=== PATIENT | female | born 1965 | race Caucasian/White ===

== ENCOUNTER 2019-03-11 06:02 | Observation (INO) ==
[~2019-03-11 06:02] MED LIST: CefOXitin Inj 2 GM in Sodium Chloride 0.9% 100 ML IV ONE; LIDOCAINE W/ SODIUM BICARB 0.5 ML SYR SUBD PRN; Nasal Sanitizer POPSWAB ampule 3 AMP (Nozin) PREOP DOSE ENOS SCH
[2019-03-11] MEDS ORDERED: Lactated Ringers 2,000 ML PRIMARY IV ONE (06:16)
[2019-03-11] MEDS ORDERED: LIDOCAINE W/ SODIUM BICARB 0.5 ML SYR ONE (06:16)
[2019-03-11] MEDS ORDERED: Sodium Chloride 0.9% 100 ML IV ONE (06:18)
[2019-03-11] MEDS: Lactated Ringers 1,000 ML PRIMARY IV SCH ×2 (06:34→10:10)
[2019-03-11 06:35] LABS: BILIRUBIN,URINE NEGATIVE (NEG); CLARITY,URINE CLEAR (CLEAR); COLOR,URINE YELLOW (Y); GLUCOSE, URINE (UA) NEGATIVE (NEG); OCCULT BLOOD,URINE LARGE (NEG); PROTEIN,URINE NEGATIVE (NEG); UROBILINOGEN,URINE 0.2 EU/dL (0.2)
[2019-03-11 06:39] LABS: BACTERIA,URINE RARE; SQUAMOUS EPITHELIAL CELL,UR FEW; URINE SAMPLE TYPE CLEAN CATCH URINE
[2019-03-11 07:10] LABS: Hematocrit [HCT] 36.1 % (37.0-47.0); Hemoglobin [HGB] 11.6 g/dL (12.0-16.0)
[2019-03-11] MEDS ORDERED: LIDOCAINE HCL 2 % 10 ML JELLY URO-JECT TOPICAL ONE (07:23)
[2019-03-11] MEDS ORDERED: PROPOFOL 10 MG/1 ML (200 MG/20 ML) VIAL IV ONE (07:33)
[2019-03-11] MEDS ORDERED: fentaNYL Inj 250 MCG/5 ML VIAL ONE (07:33)
[2019-03-11] MEDS ORDERED: DEXAMETHASONE PF 10 MG/1 ML VIAL ONE (07:34)
[2019-03-11] MEDS ORDERED: SUCCINYLCHOLINE CHLORIDE 20 MG/1 ML - 10 ML ONE (07:35)
[2019-03-11] MEDS ORDERED: ROCURONIUM 10 MG/1 ML - 5 ML VIAL IVP ONE (07:35)
[2019-03-11] MEDS ORDERED: BUPIVACAINE 0.5% W/ EPI - 10 ML VIAL ONE (07:43)
[2019-03-11] MEDS ORDERED: LIDOCAINE HCL 2 % 10 ML JELLY URO-JECT TOPICAL PRN ×2 (08:39→09:22)
[2019-03-11] MEDS ORDERED: Opium-Belladonna 30-16.2mg 1 EACH SUPP.RECT RECTAL ONE ×2 (09:08→11:06)
[2019-03-11] MEDS ORDERED: IBUPROFEN 800 MG TABLET PO PRN (09:22)
[2019-03-11] MEDS ORDERED: HYDROcodone-APAP 5 MG -325 MG TABLET PO PRN (09:22)
[2019-03-11] MEDS ORDERED: Ondansetron ODT Tab 8 MG TAB PO PRN (09:22)
[2019-03-11] MEDS ORDERED: KETOROLAC 15 MG/1 ML VIAL IVP SCH (09:30)
[2019-03-11] MEDS ORDERED: LIDOCAINE W/ SODIUM BICARB 0.5 ML SYR SUBD PRN (09:44)
[2019-03-11] MEDS ORDERED: PROMETHAZINE 25 MG/1 ML VIAL IM PRN (09:44)
[2019-03-11] MEDS ORDERED: fentaNYL Inj 100 MCG/2 ML VIAL IVP PRN (09:44)
[2019-03-11] MEDS ORDERED: ONDANSETRON 4 MG/2 ML VIAL IVP PRN (09:44)
[2019-03-11] MEDS ORDERED: Prochlorperazine Edisylate Inj 10mg/2ml vial IVP PRN (09:44)
[2019-03-11] MEDS: HYDROmorphone 2 MG/1 ML IVP PRN ×2 (09:45→09:50)
[2019-03-11] MEDS ORDERED: HYDROcodone-APAP 5 MG -325 MG TABLET PO ONE (10:03)
[2019-03-11] MEDS ORDERED: Lactated Ringers 1,000 ML PRIMARY IV ONE (10:11)
[2019-03-11] MEDS ORDERED: DIAZEPAM 10 MG/2 ML (5 MG/1 ML) CARPUJECT ONE (10:22)
[2019-03-11] MEDS ORDERED: Influenza 19-20 Vaccine (6mo+) 60 MCG/0.5 ML SYRINGE IM ONE (12:01)
[2019-03-11] MEDS ORDERED: DIAZEPAM 10 MG/2 ML (5 MG/1 ML) CARPUJECT IVP ONE (13:17)
[2019-03-11 14:26] VITALS: BP 121/63
[2019-03-11 14:27] VITALS: RESP 16; TEMP 97.6; O2SAT 93
[2019-03-11] MEDS ORDERED: DOCUSATE 100 MG CAPSULE PO SCH (21:00)
== END 2019-03-11 16:00 | disposition home or self-care (01) ==
LOC: MED/SURG 06:02 → OR 06:02
PROVIDERS: ADMIT Obstetrics & Gynecology; ATTEND Obstetrics & Gynecology